=== PATIENT | male | born 1980 | race Caucasian/White ===

== ENCOUNTER 2018-05-15 16:16 | Emergency (ER) | payer SELFPAY ==
[~2018-05-15] VITALS: Ht 188 cm; Wt 113.6 kg
[2018-05-15 16:19] VITALS: TEMP 99.1
[2018-05-15] MEDS ORDERED: HCTZ 25MG TAB25 MG PO (16:40)
[2018-05-15] MEDS ORDERED: CLEOCIN HCL300 MG PO (16:40)
[2018-05-15] MEDS ORDERED: NORCO 325 MG-51 TAB PO (16:40)
[2018-05-15 17:15] VITALS: BP 142/115; PULSE 72
== END 2018-05-15 17:54 | disposition home or self-care (01) ==
LOC: COL.ER 16:16
DX: R68.84 Jaw pain (principal); I10 Essential (primary) hypertension; F17.210 Nicotine dependence, cigarettes, uncomplicated
CPT/HCPCS: J1885

== ENCOUNTER 2018-05-16 15:33 | Emergency (ER) | payer SELFPAY ==
[~2018-05-16] VITALS: Ht 188 cm; Wt 113.6 kg
[~2018-05-16 15:33] MED LIST: CLEOCIN HCL300 MG PO; HCTZ 25MG TAB25 MG PO; NORCO 325 MG-51 TAB PO
[2018-05-16 15:38] VITALS: BP 176/128; TEMP 99.2
[2018-05-16 18:10] VITALS: PULSE 65
== END 2018-05-16 18:10 | disposition home or self-care (01) ==
LOC: COL.ER 15:33
DX: K08.89 Other specified disorders of teeth and supporting structures (principal); R22.0 Localized swelling, mass and lump, head

== ENCOUNTER 2018-06-06 14:54 | Emergency (ER) | payer OTHER ==
[~2018-06-06] VITALS: Ht 188 cm; Wt 109.1 kg
[2018-06-06 14:59] VITALS: BP 163/100; TEMP 97.7
[2018-06-06 17:55] VITALS: PULSE 72
== END 2018-06-06 17:55 | disposition home or self-care (01) ==
LOC: COL.ER 14:54
DX: K52.9 Noninfective gastroenteritis and colitis, unspecified (principal); I10 Essential (primary) hypertension; F17.210 Nicotine dependence, cigarettes, uncomplicated